=== PATIENT | male | born 1945 | race Caucasian/White ===

== ENCOUNTER → 2016-12-25 | Outpatient (CLI) | payer MEDICARE ==
[~2016-12-25] MED LIST: COREG DPS3.125 MG PO; ENTRESTO 49 MG1 EACH PO; GLUCOPHAGE-DPS500 MG PO; LASIX DPS40 MG PO; LO-DOSE ASPIRIN81 MG PO; MAALOX DPS30 ML PO; OMEGA-3 DPS1000 MG PO; PRAVACHOL20 MG PO; SURFAK DPS240 MG PO; THERAPEUTIC MUL1 TAB PO; TYLENOL DPS325 MG PO; VICTOZA 2-0.6 MG/0.1 SQ; VICTOZA SQ; ZESTRIL DPS40 MG PO
== END | disposition home or self-care (01) ==
LOC: EDT 12-23 13:00
DX: E11.9 Type 2 diabetes mellitus without complications (principal); Z71.3 Dietary counseling and surveillance